=== PATIENT | male | born 1950 | race Caucasian/White ===

== ENCOUNTER → 2020-06-21 | Outpatient (CLI) | payer MEDICARE ==
[~2020-06-21] MED LIST: ATEN25TA PO; ATOR1TAB21 PO; DEXA4TA PO; DULC5TAB PO; INDA25TAB PO; LOSA50TA88 PO; OYST1TAB PO; PANT40TA29 PO; POTA10808 PO; TEMO140C14 PO; TEMO20CA21 PO; VITAD400CA PO
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
== END ==
LOC: M ONCR 14:18
PROVIDERS: ATTEND General Practice
DX: C71.9 Malignant neoplasm of brain, unspecified (principal)

== ENCOUNTER 2020-06-27 10:21 | Outpatient (RCR) | payer MEDICARE ==
[2020-07-01] MEDS ORDERED: TEMO140C14 PO (13:39)
[2020-07-04] MEDS ORDERED: ZOFR4TAB16 PO (14:31)
[2020-07-06] MEDS ORDERED: PROC10TA4 PO (15:13)
[2020-07-07] MEDS ORDERED: ONDA-83 PO (10:54)
== END 2020-06-29 ==
LOC: M ONCR 10:21
PROVIDERS: ATTEND General Practice
DX: C71.8 Malignant neoplasm of overlapping sites of brain (principal)

== ENCOUNTER 2020-07-08 10:23 | Outpatient (RCR) | payer MEDICARE ==
[~2020-07-08 10:23] MED LIST changes: +ONDA-83 PO; +ONDANSETRON 4 MG ORAL DISINTEGRATING TAB PO ONE; +PROC10TA4 PO; +ZOFR4TAB16 PO
== END 2020-07-29 ==
LOC: M ONCR 10:23
PROVIDERS: ATTEND General Practice
DX: C71.8 Malignant neoplasm of overlapping sites of brain (principal)
CPT/HCPCS: 77386; Q0162